=== PATIENT | female | born 1935 | race Caucasian/White ===

== ENCOUNTER 2020-03-18 09:26 | Inpatient (IN) | payer MEDICARE, MEDICAID ==
[~2020-03-18] VITALS: Ht 170.2 cm; Wt 52.6 kg
[~2020-03-18 09:26] MED LIST: AMLO10TA4 PO; ASPI-1073 PO; ASPI-1158 PO; ATOR10TA69 PO; LOSA50TA41 PO; METF-414 PO; METF100P3 MC; METO-396 PO; PRAV40TA PO; SITA100T11 PO
[2020-03-18 10:03] LABS: BG BASE EXCESS -1.7 mmol/L (-2.0-2.0); BG BILEVEL POS AIRWAY PRESSURE ST-15/5; BG CARBOXYHEMOGLOBIN 0.1 % (0.5-1.5); BG FRACTION INSPIRED OXYGEN 100; BG METHEMOGLOBIN 0.1 % (0.0-1.5); BG OXYHEMOGLOBIN 98.8 % (94.0-97.0); BG PCO2 44.4 mmHg (35.0-45.0); BG PO2 165.1 mmHg (75.0-100.0); BG SAMPLE SITE RIGHT RADIAL; BG TOTAL HEMOGLOBIN 12.3 g/dL (12.0-18.0); BG VENT MODE MASK - BIPAP; BG VENT RATE 16 set
[2020-03-18 10:09] LABS: BASOPHILS % 0.4 % (0.0-2.0); EOSINOPHILS % 0.6 % (0.0-5.0); HEMATOCRIT. 34.2 % (36.0-48.0); HEMOGLOBIN. 11.8 g/dL (12.0-16.0); LYMPHOCYTES % 11.3 % (20.0-50.0); MEAN CORPUSCULAR HEMOGLOBIN 30.3 pg (28.0-32.0); MEAN CORPUSCULAR VOLUME 87.5 fL (81.0-99.0); MEAN PLATELET VOLUME 8.3 fl (7.4-10.4); NEUTROPHILS % 80.7 % (40.0-76.0); PLATELET 269 x1000/uL (130-400); RED BLOOD CELL COUNT 3.91 mill/uL (4.2-5.4)
[2020-03-18 10:14] LABS: CHLORIDE 101 mEq/L (98-107)
[2020-03-18] MEDS ORDERED: LEVOFLOXACIN 750MG PREMIX 150 ML IV ONE (11:15)
[2020-03-18] MEDS ORDERED: LEVOFLOXACIN 500MG PREMIX 100 ML IV SCH (12:30)
[2020-03-18] MEDS ORDERED: IPRATROPIUM/ALBUTEROL 0.5-3(2.5)MG/3ML NEB NEB PRN (12:30)
[2020-03-18] MEDS ORDERED: HYDROCODONE/ACETAMINOPHEN 5/325MG TABLET PO PRN (12:30)
[2020-03-18] MEDS ORDERED: CLONIDINE 0.1MG TABLET PO PRN (12:30)
[2020-03-18] MEDS ORDERED: ACETAMINOPHEN 650MG SUPP PR PRN (12:30)
[2020-03-18] MEDS ORDERED: DEXTROSE 50% WATER 50ML SYRINGE IV PRN (12:30)
[2020-03-18] MEDS ORDERED: ACETAMINOPHEN 325MG TABLET PO PRN (12:30)
[2020-03-18] MEDS ORDERED: NA PHOS,M-B/NA PHOS,DI-BA ENEMA 118ML PR PRN (12:30)
[2020-03-18] MEDS ORDERED: MAGNESIUM/ALUMINUM HYDROXIDE/SIMETHICONE 30ML UDC PO PRN (12:30)
[2020-03-18] MEDS: BLOOD SUGAR DIAGNOSTIC STRIP TEST SCH ×2 (13:35→17:40)
[2020-03-18] MEDS: IPRATROPIUM/ALBUTEROL 0.5-3(2.5)MG/3ML NEB NEB SCH (13:42)
[2020-03-18] MEDS: FAMOTIDINE 20MG/2ML VIAL IV SCH (14:00)
[2020-03-18] MEDS: INSULIN LISPRO 100 UNITS/ML SUBCUT SCH ×2 (14:05→18:42)
[2020-03-18 14:40] LABS: BG BASE EXCESS -2.3 mmol/L (-2.0-2.0); BG BILEVEL POS AIRWAY PRESSURE ST15/5; BG CARBOXYHEMOGLOBIN 0.3 % (0.5-1.5); BG DEOXYHEMOGLOBIN 2.5 % (0.0-5.0); BG FRACTION INSPIRED OXYGEN 70; BG HCO3 ACT 20.4 mmol/L (22.0-26.0); BG OXYGEN SATURATION 97.5 % (92.0-98.5); BG OXYHEMOGLOBIN 97.2 % (94.0-97.0); BG PCO2 28.8 mmHg (35.0-45.0); BG PH 7.468 (7.350-7.450); BG PO2 96.2 mmHg (75.0-100.0); BG SAMPLE SITE RIGHT RADIAL; BG TOTAL HEMOGLOBIN 11.7 g/dL (12.0-18.0); BG VENT MODE MASK - BIPAP
[2020-03-18] MEDS: METHYLPREDNISOLONE SOD SUCC 40 MG/ML VIAL IV SCH ×2 (14:45→22:00)
[2020-03-18] MEDS: DILTIAZEM HCL 30MG TABLET PO SCH ×2 (14:45→22:00)
[2020-03-18] MEDS: ENOXAPARIN 40MG/0.4ML SYR SUBCUT SCH (15:00)
[2020-03-18] MEDS ORDERED: SODIUM POLYSTYRENE SULFONATE 15 G/60 ML BOT PO SCH (15:00)
[2020-03-18] MEDS: METFORMIN HCL 500MG TABLET PO SCH (17:52)
[2020-03-18 20:11] LABS: D-DIMER 1.31 mg/L FEU (<0.50); INR 1.1; PROTHROMBIN TIME 11.1 sec (9.6-11.0)
[2020-03-18 20:19] LABS: CREATINE KINASE MB FRACTION 5.1 ng/mL (0.5-3.6)
[2020-03-18] MEDS: LORAZEPAM 0.5MG TABLET PO PRN (21:39)
[2020-03-18 23:38] LABS: CREATINE KINASE MB FRACTION 4.7 ng/mL (0.5-3.6)
[2020-03-19] VITALS (8 sets, daily range): BP systolic 125–154; BP diastolic 63–90
[2020-03-19] MEDS: DIPHENHYDRAMINE 50MG/ML VIAL IV PRN (02:16)
[2020-03-19] MEDS: LORAZEPAM 0.5MG TABLET PO PRN (02:40)
[2020-03-19 04:53] LABS: HEMATOCRIT. 31.1 % (36.0-48.0); HEMOGLOBIN. 10.7 g/dL (12.0-16.0); MEAN CORPUSCULAR HEMOGLOBIN 30.2 pg (28.0-32.0); MEAN CORPUSCULAR VOLUME 87.5 fL (81.0-99.0); MEAN PLATELET VOLUME 8.1 fl (7.4-10.4); PLATELET 222 x1000/uL (130-400); RED BLOOD CELL COUNT 3.56 mill/uL (4.2-5.4); RED CELL DISTRIBUTION WIDTH 13.6 % (11.6-14.6)
[2020-03-19 04:59] LABS: CHLORIDE 101 mEq/L (98-107)
[2020-03-19 05:08] LABS: LDL CHOLESTEROL 127 mg/dL (5-100)
[2020-03-19 05:09] LABS: HDL CHOLESTEROL 51 mg/dL (40-59)
[2020-03-19 05:10] LABS: T4 FREE 1.07 ng/dL (0.76-1.46)
[2020-03-19] MEDS: INSULIN LISPRO 100 UNITS/ML SUBCUT SCH ×4 (06:42→21:20)
[2020-03-19] MEDS: IPRATROPIUM/ALBUTEROL 0.5-3(2.5)MG/3ML NEB NEB SCH ×5 (08:01→21:17)
[2020-03-19] MEDS: METFORMIN HCL 500MG TABLET PO SCH ×2 (09:00→17:00)
[2020-03-19] MEDS: ATORVASTATIN CALCIUM 10MG TABLET PO SCH (09:00)
[2020-03-19] MEDS: LOSARTAN POTASSIUM 50 MG TABLET PO SCH (09:00)
[2020-03-19] MEDS: LINAGLIPTIN 5MG TABLET PO SCH (09:00)
[2020-03-19] MEDS: FAMOTIDINE 20MG/2ML VIAL IV SCH (09:00)
[2020-03-19] MEDS: ASCORBIC ACID 500 MG TABLET PO SCH (09:00)
[2020-03-19] MEDS: ZINC SULFATE 220 MG ( 50 ) CAPSULE PO SCH (09:00)
[2020-03-19] MEDS: ASPIRIN 81MG EC TABLET PO SCH (09:00)
[2020-03-19] MEDS ORDERED: MEDICATION NOT ON FORMULARY EA (Sitagliptin Phosphate (Januvia) 100 MG) PO SCH (09:00)
[2020-03-19] MEDS: LORAZEPAM 2MG/ML CPJ IV PRN (10:00)
[2020-03-19 10:36] LABS: PLATELET ESTIMATE NORMAL
[2020-03-19 12:02] LABS: BG BASE EXCESS -0.8 mmol/L (-2.0-2.0); BG CARBOXYHEMOGLOBIN 0.3 % (0.5-1.5); BG DEOXYHEMOGLOBIN 2.8 % (0.0-5.0); BG FRACTION INSPIRED OXYGEN 99.8; BG HCO3 ACT 23.2 mmol/L (22.0-26.0); BG METHEMOGLOBIN 0.3 % (0.0-1.5); BG OXYGEN SATURATION 97.2 % (92.0-98.5); BG OXYHEMOGLOBIN 96.6 % (94.0-97.0); BG PCO2 35.8 mmHg (35.0-45.0); BG PH 7.429 (7.350-7.450); BG PO2 93.4 mmHg (75.0-100.0); BG SAMPLE SITE RIGHT RADIAL; BG VENT MODE MASK - NRB
[2020-03-19] MEDS: BLOOD SUGAR DIAGNOSTIC STRIP TEST SCH ×3 (12:43→21:11)
[2020-03-19] MEDS: LEVOFLOXACIN 250MG PREMIX 50 ML IV SCH (12:53)
[2020-03-19] MEDS: ENOXAPARIN 40MG/0.4ML SYR SUBCUT SCH (12:54)
[2020-03-19] MEDS ORDERED: INSULIN GLARGINE UD 100 UNITS/ML SYR SUBCUT NR (13:00)
[2020-03-19 13:02] LABS: CREATINE KINASE MB FRACTION 4.3 ng/mL (0.5-3.6)
[2020-03-19] MEDS: DILTIAZEM HCL 30MG TABLET PO SCH ×3 (14:00→21:15)
[2020-03-19 16:52] LABS: CLARITY URINE CLEAR (CLEAR); COLOR URINE YELLOW (YELLOW); KETONES URINE NEGATIVE (NEGATIVE); LEUKOCYTE ESTERASE URINE NEGATIVE (NEGATIVE); NITRITE URINE NEGATIVE (NEGATIVE); OCCULT BLOOD URINE TRACE (NEGATIVE); PROTEIN URINE 3+ (NEGATIVE); UROBILINOGEN URINE 0.2 E.U./dL (0.2-1.0)
[2020-03-19 17:05] LABS: *AMPHETAMINES SCREEN URINE NEGATIVE (NEGATIVE); *BARBITURATES SCREEN URINE NEGATIVE (NEGATIVE); *BENZODIAZEPINES SCREEN URINE NEGATIVE (NEGATIVE); CANNABINOID URINE SCREEN NEGATIVE (NEGATIVE); OPIATES URINE SCREEN PRESUMTIVE POSITIVE (NEGATIVE); PHENCYCLIDINE URINE SCREEN NEGATIVE (NEGATIVE)
[2020-03-19 17:06] LABS: *COCAINE SCREEN URINE NEGATIVE (NEGATIVE); METHADONE URINE SCREEN NEGATIVE (NEGATIVE)
[2020-03-19] MEDS: METHYLPREDNISOLONE SOD SUCC 40 MG/ML VIAL IV SCH (18:18)
[2020-03-19] MEDS ORDERED: ESCI10TA61 PO (18:49)
[2020-03-19] MEDS ORDERED: IOHEXOL-350 100 ML BOTTLE ONE (20:42)
[2020-03-20] VITALS (12 sets, daily range): BP systolic 115–152; BP diastolic 56–72
[2020-03-20] MEDS: LORAZEPAM 2MG/ML CPJ IV PRN ×3 (02:35→20:39)
[2020-03-20] MEDS: IPRATROPIUM/ALBUTEROL 0.5-3(2.5)MG/3ML NEB NEB SCH ×4 (02:50→20:23)
[2020-03-20 05:05] LABS: CHLORIDE 102 mEq/L (98-107)
[2020-03-20] MEDS: METHYLPREDNISOLONE SOD SUCC 40 MG/ML VIAL IV SCH ×2 (05:08→17:43)
[2020-03-20] MEDS: DILTIAZEM HCL 30MG TABLET PO SCH ×3 (06:06→21:22)
[2020-03-20 06:36] LABS: HEMATOCRIT. 30.9 % (36.0-48.0); HEMOGLOBIN. 10.6 g/dL (12.0-16.0); MEAN CORPUSCULAR HEMOGLOBIN 30.1 pg (28.0-32.0); MEAN CORPUSCULAR VOLUME 87.7 fL (81.0-99.0); MEAN PLATELET VOLUME 8.5 fl (7.4-10.4); PLATELET 239 x1000/uL (130-400); RED BLOOD CELL COUNT 3.52 mill/uL (4.2-5.4); RED CELL DISTRIBUTION WIDTH 13.8 % (11.6-14.6)
[2020-03-20] MEDS: BLOOD SUGAR DIAGNOSTIC STRIP TEST SCH ×4 (07:35→20:32)
[2020-03-20] MEDS: METFORMIN HCL 500MG TABLET PO SCH ×2 (09:00→16:48)
[2020-03-20] MEDS: FAMOTIDINE 20MG/2ML VIAL IV SCH (09:08)
[2020-03-20] MEDS: ENOXAPARIN 40MG/0.4ML SYR SUBCUT SCH (09:08)
[2020-03-20] MEDS: INSULIN LISPRO 100 UNITS/ML SUBCUT SCH ×4 (09:09→20:33)
[2020-03-20] MEDS: ATORVASTATIN CALCIUM 10MG TABLET PO SCH (09:36)
[2020-03-20] MEDS: LOSARTAN POTASSIUM 50 MG TABLET PO SCH (09:36)
[2020-03-20] MEDS: LINAGLIPTIN 5MG TABLET PO SCH (09:38)
[2020-03-20] MEDS: ASCORBIC ACID 500 MG TABLET PO SCH (09:38)
[2020-03-20] MEDS: ASPIRIN 81MG EC TABLET PO SCH (09:38)
[2020-03-20] MEDS: ZINC SULFATE 220 MG ( 50 ) CAPSULE PO SCH (09:38)
[2020-03-20] MEDS: DOCUSATE SODIUM 100MG CAPSULE PO PRN ×2 (09:45→17:43)
[2020-03-20] MEDS ORDERED: INSULIN LISPRO 100 UNITS/ML SUBCUT ONE (10:00)
[2020-03-20] MEDS ORDERED: INSULIN GLARGINE UD 100 UNITS/ML SYR SUBCUT SCH (10:00)
[2020-03-20] MEDS: LEVOFLOXACIN 250MG PREMIX 50 ML IV SCH (10:26)
[2020-03-20] MEDS: GUAIFENESIN 200MG/10ML SUGAR FREE UDC PO PRN (11:52)
[2020-03-20 11:59] LABS: BG BASE EXCESS -0.3 mmol/L (-2.0-2.0); BG CARBOXYHEMOGLOBIN 0.3 % (0.5-1.5); BG DEOXYHEMOGLOBIN 4.6 % (0.0-5.0); BG FRACTION INSPIRED OXYGEN 99.8; BG HCO3 ACT 23.8 mmol/L (22.0-26.0); BG METHEMOGLOBIN 0.2 % (0.0-1.5); BG OXYGEN SATURATION 95.4 % (92.0-98.5); BG OXYHEMOGLOBIN 94.9 % (94.0-97.0); BG PCO2 36.8 mmHg (35.0-45.0); BG PH 7.428 (7.350-7.450); BG PO2 79.5 mmHg (75.0-100.0); BG SAMPLE SITE RIGHT BRACHIAL; BG TOTAL HEMOGLOBIN 11.7 g/dL (12.0-18.0); BG VENT MODE MASK - NRB
[2020-03-20] MEDS ORDERED: FUROSEMIDE 40MG/4ML VIAL IVP NR (13:15)
[2020-03-20 13:24] LABS: PLATELET ESTIMATE NORMAL
[2020-03-20] MEDS ORDERED: INSULIN GLARGINE UD 100 UNITS/ML SYR SUBCUT NR (14:30)
[2020-03-21] VITALS (14 sets, daily range): BP systolic 108–159; BP diastolic 56–77
[2020-03-21] MEDS: IPRATROPIUM/ALBUTEROL 0.5-3(2.5)MG/3ML NEB NEB SCH ×4 (02:30→20:49)
[2020-03-21] MEDS: DILTIAZEM HCL 30MG TABLET PO SCH ×3 (05:27→21:53)
[2020-03-21] MEDS: LORAZEPAM 2MG/ML CPJ IV PRN ×2 (05:27→13:11)
[2020-03-21] MEDS: METHYLPREDNISOLONE SOD SUCC 40 MG/ML VIAL IV SCH ×2 (05:27→17:46)
[2020-03-21 06:07] LABS: HEMATOCRIT. 31.6 % (36.0-48.0); HEMOGLOBIN. 10.6 g/dL (12.0-16.0); MEAN CORPUSCULAR HEMOGLOBIN 29.4 pg (28.0-32.0); MEAN CORPUSCULAR VOLUME 88.3 fL (81.0-99.0); MEAN PLATELET VOLUME 8.7 fl (7.4-10.4); PLATELET 247 x1000/uL (130-400); RED BLOOD CELL COUNT 3.58 mill/uL (4.2-5.4); RED CELL DISTRIBUTION WIDTH 13.7 % (11.6-14.6)
[2020-03-21] MEDS: BLOOD SUGAR DIAGNOSTIC STRIP TEST SCH ×4 (08:10→21:51)
[2020-03-21] MEDS: METFORMIN HCL 500MG TABLET PO SCH ×2 (08:12→16:38)
[2020-03-21] MEDS: ENOXAPARIN 40MG/0.4ML SYR SUBCUT SCH (09:00)
[2020-03-21] MEDS: INSULIN LISPRO 100 UNITS/ML SUBCUT SCH ×4 (09:06→21:00)
[2020-03-21 09:08] LABS: BG BASE EXCESS -0.3 mmol/L (-2.0-2.0); BG CARBOXYHEMOGLOBIN 0.3 % (0.5-1.5); BG DEOXYHEMOGLOBIN 23.9 % (0.0-5.0); BG FRACTION INSPIRED OXYGEN 40; BG HCO3 ACT 23.7 mmol/L (22.0-26.0); BG METHEMOGLOBIN 0.3 % (0.0-1.5); BG OXYHEMOGLOBIN 75.5 % (94.0-97.0); BG PCO2 36.3 mmHg (35.0-45.0); BG PH 7.432 (7.350-7.450); BG PO2 41.8 mmHg (75.0-100.0); BG SAMPLE SITE RIGHT RADIAL; BG TOTAL HEMOGLOBIN 12.2 g/dL (12.0-18.0); BG VENT MODE NASAL CANNULA
[2020-03-21] MEDS: LOSARTAN POTASSIUM 50 MG TABLET PO SCH (09:10)
[2020-03-21] MEDS: ZINC SULFATE 220 MG ( 50 ) CAPSULE PO SCH (09:10)
[2020-03-21] MEDS: FAMOTIDINE 20MG/2ML VIAL IV SCH (09:10)
[2020-03-21] MEDS: ASCORBIC ACID 500 MG TABLET PO SCH (09:10)
[2020-03-21] MEDS: DIPHENHYDRAMINE 50MG/ML VIAL IV PRN ×2 (09:11→15:29)
[2020-03-21] MEDS: LINAGLIPTIN 5MG TABLET PO SCH (09:27)
[2020-03-21] MEDS: ATORVASTATIN CALCIUM 10MG TABLET PO SCH (09:27)
[2020-03-21 09:44] LABS: PLATELET ESTIMATE NORMAL
[2020-03-21] MEDS: INSULIN GLARGINE UD 100 UNITS/ML SYR SUBCUT SCH (10:44)
[2020-03-21] MEDS: LEVOFLOXACIN 250MG PREMIX 50 ML IV SCH (10:48)
[2020-03-21] MEDS ORDERED: FUROSEMIDE 40MG/4ML VIAL IVP NR (11:15)
[2020-03-22] VITALS (11 sets, daily range): BP systolic 81–162; BP diastolic 46–83
[2020-03-22] MEDS: ONDANSETRON HCL 4MG/2ML INJ IV PRN ×2 (00:20→22:31)
[2020-03-22] MEDS: DIPHENHYDRAMINE 50MG/ML VIAL IV PRN ×3 (00:20→22:31)
[2020-03-22] MEDS: IPRATROPIUM/ALBUTEROL 0.5-3(2.5)MG/3ML NEB NEB SCH ×4 (02:00→20:11)
[2020-03-22] MEDS: METHYLPREDNISOLONE SOD SUCC 40 MG/ML VIAL IV SCH ×2 (06:11→17:57)
[2020-03-22] MEDS: DILTIAZEM HCL 30MG TABLET PO SCH (06:12)
[2020-03-22 06:27] LABS: HEMATOCRIT. 34.5 % (36.0-48.0); HEMOGLOBIN. 11.6 g/dL (12.0-16.0); MEAN CORPUSCULAR HEMOGLOBIN 29.5 pg (28.0-32.0); MEAN CORPUSCULAR VOLUME 87.8 fL (81.0-99.0); MEAN PLATELET VOLUME 8.7 fl (7.4-10.4); PLATELET 270 x1000/uL (130-400); RED BLOOD CELL COUNT 3.93 mill/uL (4.2-5.4); RED CELL DISTRIBUTION WIDTH 14.1 % (11.6-14.6)
[2020-03-22 06:35] LABS: INR 1.1; PARTIAL THROMBOPLASTIN TIME 26.7 sec (23.4-31.0); PROTHROMBIN TIME 11.4 sec (9.6-11.0)
[2020-03-22] MEDS: BLOOD SUGAR DIAGNOSTIC STRIP TEST SCH ×5 (07:45→21:00)
[2020-03-22] MEDS: ZINC SULFATE 220 MG ( 50 ) CAPSULE PO SCH (08:18)
[2020-03-22] MEDS: METFORMIN HCL 500MG TABLET PO SCH ×2 (08:18→17:57)
[2020-03-22] MEDS: ASCORBIC ACID 500 MG TABLET PO SCH (08:18)
[2020-03-22] MEDS: FAMOTIDINE 20MG/2ML VIAL IV SCH (08:20)
[2020-03-22] MEDS: INSULIN LISPRO 100 UNITS/ML SUBCUT SCH ×4 (08:20→21:00)
[2020-03-22] MEDS: LOSARTAN POTASSIUM 50 MG TABLET PO SCH (08:20)
[2020-03-22] MEDS: ENOXAPARIN 40MG/0.4ML SYR SUBCUT SCH (08:20)
[2020-03-22] MEDS: LINAGLIPTIN 5MG TABLET PO SCH (08:28)
[2020-03-22] MEDS: ATORVASTATIN CALCIUM 10MG TABLET PO SCH (08:28)
[2020-03-22] MEDS: INSULIN GLARGINE UD 100 UNITS/ML SYR SUBCUT SCH (12:05)
[2020-03-22] MEDS: LEVOFLOXACIN 250MG PREMIX 50 ML IV SCH (12:05)
[2020-03-22] MEDS: DILTIAZEM HCL 60MG TABLET PO SCH ×2 (13:12→22:31)
[2020-03-22 16:55] LABS: PLATELET ESTIMATE NORMAL
[2020-03-23] VITALS (12 sets, daily range): BP systolic 91–153; BP diastolic 45–86
[2020-03-23] MEDS: IPRATROPIUM/ALBUTEROL 0.5-3(2.5)MG/3ML NEB NEB SCH ×4 (02:11→15:22)
[2020-03-23] MEDS: METHYLPREDNISOLONE SOD SUCC 40 MG/ML VIAL IV SCH ×2 (06:00→17:07)
[2020-03-23] MEDS: DILTIAZEM HCL 60MG TABLET PO SCH ×3 (06:01→20:56)
[2020-03-23 06:27] LABS: HEMATOCRIT. 35.8 % (36.0-48.0); HEMOGLOBIN. 11.8 g/dL (12.0-16.0); MEAN CORPUSCULAR VOLUME 88.3 fL (81.0-99.0); MEAN PLATELET VOLUME 8.4 fl (7.4-10.4); PLATELET 261 x1000/uL (130-400); RED BLOOD CELL COUNT 4.05 mill/uL (4.2-5.4); RED CELL DISTRIBUTION WIDTH 13.7 % (11.6-14.6)
[2020-03-23] MEDS: BLOOD SUGAR DIAGNOSTIC STRIP TEST SCH ×4 (07:30→20:55)
[2020-03-23] MEDS: INSULIN LISPRO 100 UNITS/ML SUBCUT SCH ×4 (09:06→20:55)
[2020-03-23] MEDS: INSULIN GLARGINE UD 100 UNITS/ML SYR SUBCUT SCH (09:07)
[2020-03-23] MEDS: DIPHENHYDRAMINE 50MG/ML VIAL IV PRN ×2 (09:26→17:06)
[2020-03-23] MEDS: ONDANSETRON HCL 4MG/2ML INJ IV PRN ×2 (09:26→17:08)
[2020-03-23] MEDS: ENOXAPARIN 40MG/0.4ML SYR SUBCUT SCH (09:26)
[2020-03-23] MEDS: LINAGLIPTIN 5MG TABLET PO SCH (09:26)
[2020-03-23] MEDS: FAMOTIDINE 20MG/2ML VIAL IV SCH (09:26)
[2020-03-23] MEDS: ZINC SULFATE 220 MG ( 50 ) CAPSULE PO SCH (09:26)
[2020-03-23] MEDS: LOSARTAN POTASSIUM 50 MG TABLET PO SCH (09:26)
[2020-03-23] MEDS: DOCUSATE SODIUM 100MG CAPSULE PO PRN (09:26)
[2020-03-23] MEDS: ASCORBIC ACID 500 MG TABLET PO SCH (09:27)
[2020-03-23] MEDS: ATORVASTATIN CALCIUM 10MG TABLET PO SCH (09:27)
[2020-03-23] MEDS: METFORMIN HCL 500MG TABLET PO SCH ×2 (09:27→17:08)
[2020-03-23 13:13] LABS: PLATELET ESTIMATE NORMAL
[2020-03-24] VITALS (12 sets, daily range): BP systolic 124–145; BP diastolic 51–68
[2020-03-24] MEDS: METHYLPREDNISOLONE SOD SUCC 40 MG/ML VIAL IV SCH ×2 (06:10→17:14)
[2020-03-24] MEDS: DILTIAZEM HCL 60MG TABLET PO SCH ×3 (06:11→22:28)
[2020-03-24] MEDS: BLOOD SUGAR DIAGNOSTIC STRIP TEST SCH ×4 (07:30→21:00)
[2020-03-24] MEDS: ATORVASTATIN CALCIUM 10MG TABLET PO SCH (09:00)
[2020-03-24] MEDS ORDERED: ASPIRIN 81MG EC TABLET PO SCH (09:00)
[2020-03-24] MEDS: INSULIN LISPRO 100 UNITS/ML SUBCUT SCH ×4 (09:19→22:28)
[2020-03-24] MEDS: LOSARTAN POTASSIUM 50 MG TABLET PO SCH (09:20)
[2020-03-24] MEDS: FAMOTIDINE 20MG/2ML VIAL IV SCH (09:20)
[2020-03-24] MEDS: ZINC SULFATE 220 MG ( 50 ) CAPSULE PO SCH (09:21)
[2020-03-24] MEDS: ASCORBIC ACID 500 MG TABLET PO SCH (09:21)
[2020-03-24] MEDS: LINAGLIPTIN 5MG TABLET PO SCH (09:21)
[2020-03-24] MEDS: METFORMIN HCL 500MG TABLET PO SCH ×2 (09:21→17:14)
[2020-03-24] MEDS: ENOXAPARIN 40MG/0.4ML SYR SUBCUT SCH (09:21)
[2020-03-24] MEDS: INSULIN GLARGINE UD 100 UNITS/ML SYR SUBCUT SCH (09:22)
[2020-03-24 10:59] LABS: BG CARBOXYHEMOGLOBIN 0.1 % (0.5-1.5); BG DEOXYHEMOGLOBIN 4.2 % (0.0-5.0); BG FRACTION INSPIRED OXYGEN 95; BG HCO3 ACT 22.5 mmol/L (22.0-26.0); BG METHEMOGLOBIN 0.2 % (0.0-1.5); BG OXYGEN SATURATION 95.8 % (92.0-98.5); BG OXYHEMOGLOBIN 95.5 % (94.0-97.0); BG PCO2 30.1 mmHg (35.0-45.0); BG PH 7.491 (7.350-7.450); BG PO2 77.8 mmHg (75.0-100.0); BG SAMPLE SITE RIGHT RADIAL; BG TOTAL HEMOGLOBIN 12.4 g/dL (12.0-18.0); BG VENT MODE HF-NASAL CANNULA
[2020-03-24 13:02] LABS: HEMATOCRIT 35.5 % (36.0-48.0); HEMOGLOBIN 11.8 g/dL (12.0-16.0); MEAN CORPUSCULAR HEMOGLOBIN 29.4 pg (28.0-32.0); MEAN CORPUSCULAR VOLUME 88.3 fL (81.0-99.0); PLATELET 257 x1000/uL (130-400); RED BLOOD CELL COUNT 4.02 mill/uL (4.2-5.4); RED CELL DISTRIBUTION WIDTH 13.7 % (11.6-14.6)
[2020-03-24] MEDS: IPRATROPIUM/ALBUTEROL 0.5-3(2.5)MG/3ML NEB NEB SCH ×2 (15:09→19:50)
[2020-03-25] VITALS (13 sets, daily range): BP systolic 128–189; BP diastolic 55–91
[2020-03-25] MEDS: IPRATROPIUM/ALBUTEROL 0.5-3(2.5)MG/3ML NEB NEB SCH ×4 (01:34→20:00)
[2020-03-25] MEDS: METHYLPREDNISOLONE SOD SUCC 40 MG/ML VIAL IV SCH (06:03)
[2020-03-25] MEDS: DILTIAZEM HCL 60MG TABLET PO SCH ×4 (06:03→20:34)
[2020-03-25 06:42] LABS: HEMATOCRIT. 36.5 % (36.0-48.0); HEMOGLOBIN. 12.3 g/dL (12.0-16.0); MEAN CORPUSCULAR HEMOGLOBIN 29.8 pg (28.0-32.0); MEAN PLATELET VOLUME 8.5 fl (7.4-10.4); PLATELET 257 x1000/uL (130-400); RED BLOOD CELL COUNT 4.15 mill/uL (4.2-5.4); RED CELL DISTRIBUTION WIDTH 14.1 % (11.6-14.6)
[2020-03-25 07:08] LABS: CHLORIDE 110 mEq/L (98-107)
[2020-03-25] MEDS: BLOOD SUGAR DIAGNOSTIC STRIP TEST SCH ×4 (08:21→20:34)
[2020-03-25] MEDS: INSULIN LISPRO 100 UNITS/ML SUBCUT SCH ×4 (08:34→20:34)
[2020-03-25] MEDS: LINAGLIPTIN 5MG TABLET PO SCH (08:35)
[2020-03-25] MEDS: METFORMIN HCL 500MG TABLET PO SCH ×2 (08:36→18:10)
[2020-03-25] MEDS: ATORVASTATIN CALCIUM 10MG TABLET PO SCH (08:36)
[2020-03-25] MEDS: LOSARTAN POTASSIUM 50 MG TABLET PO SCH ×3 (08:36→21:00)
[2020-03-25] MEDS: ASCORBIC ACID 500 MG TABLET PO SCH (08:36)
[2020-03-25] MEDS: ZINC SULFATE 220 MG ( 50 ) CAPSULE PO SCH (08:36)
[2020-03-25] MEDS: FAMOTIDINE 20MG/2ML VIAL IV SCH (08:36)
[2020-03-25] MEDS ORDERED: ENOXAPARIN 30MG/0.3ML SYR SUBCUT SCH (09:00)
[2020-03-25] MEDS: INSULIN GLARGINE UD 100 UNITS/ML SYR SUBCUT SCH (10:37)
[2020-03-25] MEDS: DOCUSATE SODIUM 100MG CAPSULE PO PRN (10:38)
[2020-03-25] MEDS ORDERED: FUROSEMIDE 40MG/4ML VIAL IVP NR (11:00)
[2020-03-25 14:15] LABS: PLATELET ESTIMATE NORMAL
[2020-03-25 14:43] LABS: BG BASE EXCESS 0.9 mmol/L (-2.0-2.0); BG CARBOXYHEMOGLOBIN 0.4 % (0.5-1.5); BG DEOXYHEMOGLOBIN 11.3 % (0.0-5.0); BG FRACTION INSPIRED OXYGEN 21; BG HCO3 ACT 23.6 mmol/L (22.0-26.0); BG METHEMOGLOBIN 0.4 % (0.0-1.5); BG OXYGEN SATURATION 88.6 % (92.0-98.5); BG OXYHEMOGLOBIN 87.9 % (94.0-97.0); BG PH 7.486 (7.350-7.450); BG PO2 52.5 mmHg (75.0-100.0); BG SAMPLE SITE LEFT RADIAL; BG TOTAL HEMOGLOBIN 13.6 g/dL (12.0-18.0); BG VENT MODE ROOM AIR
[2020-03-25] MEDS ORDERED: LACTULOSE 20G/30ML UDC PO NR (17:45)
[2020-03-25] MEDS: GUAIFENESIN 200MG/10ML SUGAR FREE UDC PO PRN (20:34)
[2020-03-26] VITALS (12 sets, daily range): BP systolic 110–220; BP diastolic 51–107
[2020-03-26] MEDS: IPRATROPIUM/ALBUTEROL 0.5-3(2.5)MG/3ML NEB NEB SCH ×4 (02:00→20:28)
[2020-03-26] MEDS: DILTIAZEM HCL 60MG TABLET PO SCH ×2 (02:00→08:18)
[2020-03-26] MEDS: DIPHENHYDRAMINE 50MG/ML VIAL IV PRN (02:15)
[2020-03-26 07:06] LABS: CHLORIDE 106 mEq/L (98-107)
[2020-03-26 07:11] LABS: HEMATOCRIT. 36.5 % (36.0-48.0); HEMOGLOBIN. 12.1 g/dL (12.0-16.0); MEAN CORPUSCULAR HEMOGLOBIN 29.2 pg (28.0-32.0); MEAN CORPUSCULAR VOLUME 87.8 fL (81.0-99.0); MEAN PLATELET VOLUME 8.5 fl (7.4-10.4); PLATELET 250 x1000/uL (130-400); RED BLOOD CELL COUNT 4.16 mill/uL (4.2-5.4); RED CELL DISTRIBUTION WIDTH 13.7 % (11.6-14.6)
[2020-03-26] MEDS: INSULIN LISPRO 100 UNITS/ML SUBCUT SCH ×4 (08:00→21:00)
[2020-03-26] MEDS: FAMOTIDINE 20MG TABLET PO SCH ×2 (08:18→09:00)
[2020-03-26] MEDS: ZINC SULFATE 220 MG ( 50 ) CAPSULE PO SCH ×2 (08:18→09:00)
[2020-03-26] MEDS: LINAGLIPTIN 5MG TABLET PO SCH ×2 (08:19→09:00)
[2020-03-26] MEDS: LOSARTAN POTASSIUM 50 MG TABLET PO SCH ×4 (08:19→21:45)
[2020-03-26] MEDS: ATORVASTATIN CALCIUM 10MG TABLET PO SCH ×2 (08:19→09:00)
[2020-03-26] MEDS: METFORMIN HCL 500MG TABLET PO SCH ×3 (08:19→16:25)
[2020-03-26] MEDS: BLOOD SUGAR DIAGNOSTIC STRIP TEST SCH ×4 (08:20→21:00)
[2020-03-26] MEDS: FUROSEMIDE 40MG/4ML VIAL IVP SCH (08:20)
[2020-03-26] MEDS: ASCORBIC ACID 500 MG TABLET PO SCH ×2 (08:20→09:00)
[2020-03-26] MEDS ORDERED: POTASSIUM CHLORIDE 20MEQ TABLET SR PO NR (08:45)
[2020-03-26] MEDS: AMLODIPINE 5MG TABLET PO SCH ×3 (09:00→21:46)
[2020-03-26] MEDS ORDERED: HYDRALAZINE 20MG/ML VIAL IV PRN (09:00)
[2020-03-26] MEDS: INSULIN GLARGINE UD 100 UNITS/ML SYR SUBCUT SCH (10:00)
[2020-03-26] MEDS ORDERED: CLONIDINE 0.1MG TABLET PO NR (10:00)
[2020-03-26] MEDS ORDERED: ASPI-1497 MT (12:12)
[2020-03-26] MEDS ORDERED: BLOO1KIT74 TP (12:12)
[2020-03-26] MEDS ORDERED: FAMO-135 PO (12:12)
[2020-03-26] MEDS ORDERED: LEVO500T2 PO (12:12)
[2020-03-26] MEDS ORDERED: ALBU90AE INH (12:12)
[2020-03-26] MEDS ORDERED: AMLO5TAB4 PO (12:12)
[2020-03-26] MEDS ORDERED: LOSA50TA3 PO (12:12)
[2020-03-26] MEDS ORDERED: POTASSIUM CHLORIDE INJ 40 MEQ in DEXT 5% WATER 250 ML IV NR (12:30)
[2020-03-26 15:36] LABS: PLATELET ESTIMATE NORMAL
[2020-03-26] MEDS ORDERED: POTASSIUM CHLORIDE 20MEQ/PACKET PO NR (17:00)
[2020-03-26] MEDS ORDERED: LACTULOSE 20G/30ML UDC PO PRN (22:00)
[2020-03-27] VITALS (10 sets, daily range): BP systolic 90–149; BP diastolic 59–73
[2020-03-27] MEDS: BLOOD SUGAR DIAGNOSTIC STRIP TEST SCH ×4 (07:30→17:30)
[2020-03-27] MEDS: INSULIN LISPRO 100 UNITS/ML SUBCUT SCH ×4 (08:00→17:30)
[2020-03-27] MEDS: FUROSEMIDE 40MG/4ML VIAL IVP SCH (09:00)
[2020-03-27] MEDS: IPRATROPIUM/ALBUTEROL 0.5-3(2.5)MG/3ML NEB NEB SCH ×2 (09:06→15:33)
[2020-03-27] MEDS: METFORMIN HCL 500MG TABLET PO SCH ×2 (09:30→17:00)
[2020-03-27] MEDS: ATORVASTATIN CALCIUM 10MG TABLET PO SCH (09:31)
[2020-03-27] MEDS: LINAGLIPTIN 5MG TABLET PO SCH (09:31)
[2020-03-27] MEDS: ZINC SULFATE 220 MG ( 50 ) CAPSULE PO SCH (09:31)
[2020-03-27] MEDS: FAMOTIDINE 20MG TABLET PO SCH (09:31)
[2020-03-27] MEDS: ASCORBIC ACID 500 MG TABLET PO SCH (09:31)
[2020-03-27] MEDS: INSULIN GLARGINE UD 100 UNITS/ML SYR SUBCUT SCH (09:38)
[2020-03-27 09:58] LABS: BASOPHILS % 0.2 % (0.0-2.0); EOSINOPHILS % 0.2 % (0.0-5.0); HEMATOCRIT. 39.7 % (36.0-48.0); HEMOGLOBIN. 13.1 g/dL (12.0-16.0); LYMPHOCYTES % 7.8 % (20.0-50.0); MEAN CORPUSCULAR HEMOGLOBIN 29.4 pg (28.0-32.0); MEAN CORPUSCULAR VOLUME 88.9 fL (81.0-99.0); MEAN PLATELET VOLUME 8.7 fl (7.4-10.4); MONOCYTES % 6.8 % (2.0-8.0); PLATELET 226 x1000/uL (130-400); RED BLOOD CELL COUNT 4.47 mill/uL (4.2-5.4); RED CELL DISTRIBUTION WIDTH 14.1 % (11.6-14.6)
[2020-03-27 10:03] LABS: CHLORIDE 103 mEq/L (98-107)
[2020-03-27] MEDS ORDERED: POTASSIUM CHLORIDE 20MEQ TABLET SR PO NR (11:00)
[2020-03-27 17:02] LABS: BASOPHILS % 0.4 % (0.0-2.0); EOSINOPHILS % 0.3 % (0.0-5.0); HEMATOCRIT. 37.3 % (36.0-48.0); HEMOGLOBIN. 12.4 g/dL (12.0-16.0); LYMPHOCYTES % 7.9 % (20.0-50.0); MEAN CORPUSCULAR HEMOGLOBIN 29.4 pg (28.0-32.0); MEAN CORPUSCULAR VOLUME 88.8 fL (81.0-99.0); MEAN PLATELET VOLUME 8.7 fl (7.4-10.4); MONOCYTES % 7.3 % (2.0-8.0); NEUTROPHILS % 84.1 % (40.0-76.0); PLATELET 216 x1000/uL (130-400); RED CELL DISTRIBUTION WIDTH 14.1 % (11.6-14.6)
== END 2020-03-27 18:39 | disposition home or self-care (01) | DRG 871 ==
LOC: ER 10:01 → EDBEDREQSVC 11:49 → EDBEDREQ 11:49 → MICUSO 11:53 → SUPCPDRO 14:44 → 5EST 03-19 08:05
PROVIDERS: ADMIT Internal Medicine; ATTEND Internal Medicine
PROC: 5A09357 Assistance with Respiratory Ventilation, Less than 24 Consecutive Hours, Continuous Positive Airway Pressure (ICD-10-PCS; principal; 2020-03-18)
DX: A41.9 Sepsis, unspecified organism (principal); J18.9 Pneumonia, unspecified organism; J96.01 Acute respiratory failure with hypoxia; I21.4 Non-ST elevation (NSTEMI) myocardial infarction; E87.1 Hypo-osmolality and hyponatremia; C25.9 Malignant neoplasm of pancreas, unspecified; D64.9 Anemia, unspecified; E87.5 Hyperkalemia; E78.5 Hyperlipidemia, unspecified; E78.00 Pure hypercholesterolemia, unspecified; D72.810 Lymphocytopenia; E11.65 Type 2 diabetes mellitus with hyperglycemia; R74.0 Nonspecific elevation of levels of transaminase and lactic acid dehydrogenase [LDH]; Z20.828 Contact with and (suspected) exposure to other viral communicable diseases; I11.0 Hypertensive heart disease with heart failure; I50.9 Heart failure, unspecified; E11.51 Type 2 diabetes mellitus with diabetic peripheral angiopathy without gangrene; F03.90 Unspecified dementia, unspecified severity, without behavioral disturbance, psychotic disturbance, mood disturbance, and anxiety; I25.10 Atherosclerotic heart disease of native coronary artery without angina pectoris; Z88.6 Allergy status to analgesic agent; Z88.5 Allergy status to narcotic agent; Z88.8 Allergy status to other drugs, medicaments and biological substances; Z79.84 Long term (current) use of oral hypoglycemic drugs; Z79.82 Long term (current) use of aspirin; Z79.899 Other long term (current) drug therapy; Z98.891 History of uterine scar from previous surgery; Z85.07 Personal history of malignant neoplasm of pancreas; Z98.62 Peripheral vascular angioplasty status
CPT/HCPCS: 36415; 36600; 71045; 71275; 76604; 76700; 80048; 80053; 80061; 80305; 81003; 82105; 82375; 82378; 82550; 82553; 82805; 82962; 83036; 83735; 83880; 84145; 84439; 84443; 84484; 85025; 85027; 85379; 86301; 86850; 86900; 87449; 93005; 93306; 93970; 94640; 94660; 96374; 97162; 97530; 99291; J0360; J1200; J1650; J1815; J1940; J1956; J2060; J2405; J2920; J3480; J3490; J7060; Q9967; U0003-CS

== ENCOUNTER 2024-05-01 10:32 | Emergency (ER) | payer MEDICARE, MEDICAID ==
[~2024-05-01] VITALS: Ht 165.1 cm; Wt 85.0 kg
[~2024-05-01 10:32] MED LIST changes: +ALBU90AE INH; +AMLO5TAB4 PO; -ASPI-1073 PO; -ASPI-1158 PO; +ASPI-1406 PO; +ASPI-1497 MT; +BLOO1KIT74 TP; +ESCI-7 PO; +FAMO-135 PO; +LOSA-413 PO; -METF-414 PO
[2024-05-01 10:36] VITALS: BP 140/69; PULSE 62; RESP 16; TEMP 98.1; O2SAT 99
== END 2024-05-01 11:57 | disposition home or self-care (01) ==
LOC: ER 10:32
DX: I83.891 Varicose veins of right lower extremity with other complications (principal); I10 Essential (primary) hypertension; E78.00 Pure hypercholesterolemia, unspecified; E11.9 Type 2 diabetes mellitus without complications; Z79.82 Long term (current) use of aspirin; Z88.0 Allergy status to penicillin; Z88.5 Allergy status to narcotic agent; Z79.899 Other long term (current) drug therapy; Z98.890 Other specified postprocedural states
CPT/HCPCS: 12001; 99283